=== PATIENT | female | born 1990 | race Caucasian/White ===

== ENCOUNTER 2025-02-20 14:30 | Emergency (ER) | payer OTHER, SELFPAY ==
--- NOTE | ~2025-02-20 | CT_ITS ---
EXAMINATION: CTA chest PE abdomen pel DATE: 02/20/2025 19:11 CDT INDICATION: TECHNIQUE: Computed tomographic angiography (CTA) of the chest was performed, along with multiple con tiguous axial images of the abdomen and pelvis with 100 mL Omnipaque-350 intravenous contrast. The do se-length product was 1805.71 mGy-cm. Maximum intensity projection 3D-reconstructions of the aorta an d other arteries were constructed by the technologist on a separate workstation. FINDINGS/OBSERVATIONS: PULMONARY ARTERIES: No filling defect is identified within the main or proximal pulmonary artery. The main pulmonary artery is not enlarged. THORACIC AORTA: No aneurysmal dilatation or dissection is present. The great vessels are intact LUNGS: MEDIASTINUM: No morphologically suspicious or pathologically enlarged lymph nodes are identified with in the mediastinum or bilateral axilla. BONES OF THE CHEST: No acute fracture. No significant degenerative disease. No lytic or blastic lesions. HEART: The heart is of normal size, without pericardial effusion. LIVER: The liver enhances homogeneously and is enlarged measuring 22 cm in longitudinal dimension. GALLBLADDER AND BILIARY SYSTEM: The gallbladder is distended, and demonstrates mural thickening and surrounding free fluid. No discrete calcified stones are identified. PANCREAS: The pancreas enhances homogeneously without ductal dilatation. SPLEEN: The spleen enhances homogeneously and is not enlarged. KIDNEYS: The bilateral kidneys enhance symmetrically without hydronephrosis or renal calculi. ADRENAL GLANDS: Unremarkable. GASTROINTESTINAL TRACT: Fluid distention of the stomach without surrounding inflammatory change. Colonic diverticulosis without surrounding inflammatory change. APPENDIX: The air-filled appendix is of normal caliber (coronal series, images 35 through 47) VASCULATURE: Unremarkable. No aneurysmal dilatation or significant stenosis. LYMPH NODES: No pathologically enlarged or morphologically suspicious lymph nodes within the retroperitoneum or at the root of the mesentery. PELVIC STRUCTURES: The bladder is only minimally distended, and otherwise unremarkable. The uterus is anteverted and anteflexed, and otherwise unremarkable. The bilateral ovaries are unremarkable in size for a patient of this age. BODY WALL AND MUSCULOSKELETAL: Small fat-containing umbilical hernia. No significant degenerative disease within the lower thoracic or lumbosacral spine. IMPRESSION: No pulmonary embolus. No aneurysmal dilatation of the aorta. No aortic dissection. Mural thickening of the distended gallbladder with pericholecystic fluid, as detailed above. Hepatomegaly Reviewed, dictated and finalized at location A. IMPRESSION: No pulmonary embolus. No aneurysmal dilatation of the aorta. No aortic dissection. Mural thickening of the distended gallbladder with pericholecystic fluid, as de tailed above. Hepatomegaly
[2025-02-20 14:42] VITALS: BP 129/70; PULSE 84; RESP 18; TEMP 36.6; O2SAT 100
--- NOTE | 2025-02-20 15:52 | ECG_ITS ---
Test Date: 2025-02-20 16:18:11 Measurements Intervals Purvis Rate: 81 P: 30 VT: 161 QRS: 20 QRSD: 82 T: 31 QT: 356 QTc: 415 Interpretive Statements SINUS RHYTHM LOW QRS VOLTAGE IN PRECORDIAL LEADS Electronically Signed On 02-21-2025 17:11:09 CDT by Rober Lawson D.O
--- NOTE | 2025-02-20 15:54 | ED_ITS ---
HPI - SOB/Dyspnea General Chief Complaint: Shortness of Breath/Dyspnea <Henny Wong APRN - Last Filed: 02/20/25 15:57> Stated Complaint: sob, hx of PEs <Henny Wong APRN - Last Filed: 02/20/25 15:57> Time Seen by Provider: 02/20/25 15:40 <Henny Wong APRN - Last Filed: 02/20/25 15:57> Focused HPI: Patient is a 35-year-old female who presents to the ER with sudden onset R flank/abdominal pain, along with shortness of breath. She reports the pain started approximately 5 hours ago when she was driving. 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 Her youngest child is 8-month-old. Patient denies any other relevant medical history. She reports she has never pain like this before. Patient denies any recent fevers, urinary symptoms, or wheezing. GENERAL: Ill l-appearing, well-nourished, and in acute distress. HEAD: Normocephalic, atraumatic. CHEST: Clear to auscultation. ?No respiratory distress. HEART: Regular rate and rhythm.? NEURO: ?Alert and oriented x3. Tearful Patient screened in triage and initial orders placed.? ?Additional care and disposition to be based upon?diagnostic testing and treatment. <Henny Wong APRN - Last Filed: 02/20/25 15:57> History of Present Illness HPI Narrative: per EMR <Ann Mon MD - Last Filed: 02/20/25 23:59> Related Data Allergies/Adverse Reactions: Allergies Allergy/AdvReac Type Severity Reaction Status Date / Time No Known Allergies Allergy Verified 02/20/25 18:30 <Henny Wong APRN - Last Filed: 02/20/25 15:57> Review of Systems 2 Review of Systems: All systems reviewed & are unremarkable except as noted in HPI and below <Ann Mon MD - Last Filed: 02/20/25 23:59> Exam 2 Narrative: EXAMINATION OF ORGAN SYSTEMS/BODY AREAS: Constitutional: Vital signs per nursing GENERAL: Is extremely anxious HEAD: Normal with no signs of head trauma. EYES: EOMI, conjunctiva normal ENT: Hearing grossly intact LUNGS: Nonlabored breathing. HEART: [Regular rate and rhythm] ABD: [Soft], negative Richardson sign, no significant tenderness to palpation right upper quadrant EXT: Normal range of motion SKIN: [No rashes or lesions.] NEURO: [Alert and oriented x 3. No gross focal sensory or strength deficits.] PSYCH: Anxious affect <Ann Mon MD - Last Filed: 02/20/25 23:59> Course Vital Signs Vital signs: Vital Signs Temperature 97.9 F 02/20/25 14:42 Pulse Rate 84 02/20/25 14:42 Respiratory Rate 18 02/20/25 14:42 Blood Pressure 129/70 02/20/25 14:42 Pulse Oximetry 100 02/20/25 14:42 Oxygen Delivery Room Air 02/20/25 14:42 Temperature 97.6 F 02/20/25 17:35 Pulse Rate 99 02/20/25 21:10 Respiratory Rate 18 02/20/25 21:10 Blood Pressure 117/65 02/20/25 21:10 Pulse Oximetry 99 02/20/25 21:10 Oxygen Delivery Room Air 02/20/25 18:28 <Henny Wong APRN - Last Filed: 02/20/25 15:57> Vital Signs Temperature 97.9 F 02/20/25 14:42 Pulse Rate 84 02/20/25 14:42 Respiratory Rate 18 02/20/25 14:42 Blood Pressure 129/70 02/20/25 14:42 Pulse Oximetry 100 02/20/25 14:42 Oxygen Delivery Room Air 02/20/25 14:42 Temperature 97.6 F 02/20/25 17:35 Pulse Rate 99 02/20/25 21:10 Respiratory Rate 18 02/20/25 21:10 Blood Pressure 117/65 02/20/25 21:10 Pulse Oximetry 99 02/20/25 21:10 Oxygen Delivery Room Air 02/20/25 18:28 <Ann Mon MD - Last Filed: 02/20/25 23:59> MDM - SOB/Dyspnea MDM Narrative Medical decision making narrative: Patient presents here with right flank pain, concern for possible PE, on exam she is tearful, abdomen soft with some very minimal tenderness to the right upper quadrant with deep palpation but otherwise negative Richardson sign, normal vitals and no fevers. D-dimer is negative, CTA was obtained which is negative for PE, does show signs of cholecystitis. She has very minimally elevated LFTs, but no elevated bilirubin, very minimally elevated WBC. She does not live here and needs to get home to [place], she is driving there with her 2 young children where she will be meeting with family. I did discuss this with the surgeon, given how well she appears here, do feel she can be managed outpatient, with close follow-up in the clinic. Discussed with the patient was agreeable to the plan, with strict return precautions if she starts having any signs of cholecystitis she is to go to the nearest emergency room. She is started on antibiotics with IV dose given here. At time of discharge she is well-appearing, in no distress, normal vitals. <Ann Mon MD - Last Filed: 02/20/25 23:59> Lab Data Result diagrams: 02/20/25 16:29 02/20/25 16:29 <Henny Wong APRN - Last Filed: 02/20/25 15:57> Labs: Lab Results 02/20/25 02/20/25 02/20/25 Range/Units 16:29 16:34 18:22 WBC 11.5 H (4.5-10.0) K/mm3 RBC 5.02 (4.2-5.4) M/mm3 Hgb 14.7 (12.0-15.0) g/dL Hct 43.4 (37.0-47.0) % MCV 86.5 (80-100) fl MCH 29.3 (26-34) pg MCHC 33.9 (32-36) g/dl RDW 13.1 (11.5-14.5) % Plt Count 275 (150-375) k/mm3 MPV 11.2 H (7.4-10.4) fl Immature Gran % (Auto) 0.3 (0-0.5) % Neut % (Auto) 62.9 (45.5-73.1) % Lymph % (Auto) 29.9 (18.3-44.2) % [place] % (Auto) 5.7 (2.6-8.5) % Eos % (Auto) 0.8 (0-4.4) % Baso % (Auto) 0.4 (0.2-1.2) % Lymph # (Auto) 3.43 H (0.9-3.2) K/mm3 [place] # (Auto) 0.7 H (0.1-0.6) K/mm3 Eos # (Auto) 0.1 (0-0.3) K/mm3 Baso # (Auto) 0.1 (0.0-0.1) K/mm3 Abs Immat Gran (auto) 0.04 H (0.00-0.031) K/mm3 Absolute Neuts (auto) 7.2 H (1.3-6.7) K/mm3 Absolute Nucleated RBC 0.000 (0.0-0.012) K/mm3 Nucleated RBC % 0.0 (0.0-0.2) % PT 12.3 (11.1-14.7) Seconds INR 0.9 APTT 27.1 (22.3-36.8) Seconds D-Dimer 0.38 (<0.48) ug/mL Sodium 141 (137-145) mmol/L Potassium 3.9 (3.4-5.0) mmol/L Chloride 105 (98-107) mmol/L Carbon Dioxide 24 (22-30) mmol/L Anion Gap 12 (4-12) mmol/L BUN 13 (7-17) mg/dL Creatinine 0.94 (0.7-1.0) mg/dL Estim Creat Clear Calc 79 ml/min Estimated GFR > 60 (59 - ) Glucose 91 (65-110) mg/dL POC Capillary Glucose 130 H (65-105) mg/dl Lactic Acid 1.7 (0.7-2.0) mmol/L Calcium 9.5 (8.4-10.2) mg/dL Magnesium 2.0 (1.6-2.3) mg/dL Total Bilirubin 0.8 (0.2-1.3) mg/dL AST 95 H (14-36) U/L ALT 47 H (6-35) U/L Alkaline Phosphatase 114 (38-126) U/L Troponin I < 0.012 (0.000-0.034) ng/mL Total Protein 8.4 H (6.3-8.2) g/dL Albumin 4.7 (3.5-5.1) g/dL Urine Color Yellow (Yellow) Urine Appearance Clear (Clear) Urine pH 7.0 (5.0-9.0) Ur Specific [place] 1.029 (1.001-1.035) Urine Protein 1+ H (Negative) mg/dL Urine Glucose (UA) Negative (Negative) mg/dL Urine Ketones Trace H (Negative) mg/dL Ur Blood (Man) 2+ H (Negative) Urine Nitrate Negative (Negative) Urine Bilirubin Negative (Negative) Urine Urobilinogen 1.0 (<2.0) mg/dL Leukocyte Esterase Rfl 1+ H (Negative) TRES/UL Urine RBC 0-2 (0-2) /hpf Urine WBC 11-20 H (0-3) /hpf Ur Squamous Epith Cells Few (Few) /hpf Urine Bacteria 1+ H /hpf Urine Casts 0-2 Urine Test Negative <Henny Wong, FILM AND VIDEO GRAPHICS DESIGNER - Last Filed: 02/20/25 15:57> Lab Results 02/20/25 02/20/25 02/20/25 Range/Units 16:29 16:34 18:22 WBC 11.5 H (4.5-10.0) K/mm3 RBC 5.02 (4.2-5.4) M/mm3 Hgb 14.7 (12.0-15.0) g/dL Hct 43.4 (37.0-47.0) % MCV 86.5 (80-100) fl MCH 29.3 (26-34) pg MCHC 33.9 (32-36) g/dl RDW 13.1 (11.5-14.5) % Plt Count 275 (150-375) k/mm3 MPV 11.2 H (7.4-10.4) fl Immature Gran % (Auto) 0.3 (0-0.5) % Neut % (Auto) 62.9 (45.5-73.1) % Lymph % (Auto) 29.9 (18.3-44.2) % [place] % (Auto) 5.7 (2.6-8.5) % Eos % (Auto) 0.8 (0-4.4) % Baso % (Auto) 0.4 (0.2-1.2) % Lymph # (Auto) 3.43 H (0.9-3.2) K/mm3 [place] # (Auto) 0.7 H (0.1-0.6) K/mm3 Eos # (Auto) 0.1 (0-0.3) K/mm3 Baso # (Auto) 0.1 (0.0-0.1) K/mm3 Abs Immat Gran (auto) 0.04 H (0.00-0.031) K/mm3 Absolute Neuts (auto) 7.2 H (1.3-6.7) K/mm3 Absolute Nucleated RBC 0.000 (0.0-0.012) K/mm3 Nucleated RBC % 0.0 (0.0-0.2) % PT 12.3 (11.1-14.7) Seconds INR 0.9 APTT 27.1 (22.3-36.8) Seconds D-Dimer 0.38 (<0.48) ug/mL Sodium 141 (137-145) mmol/L Potassium 3.9 (3.4-5.0) mmol/L Chloride 105 (98-107) mmol/L Carbon Dioxide 24 (22-30) mmol/L Anion Gap 12 (4-12) mmol/L BUN 13 (7-17) mg/dL Creatinine 0.94 (0.7-1.0) mg/dL Estim Creat Clear Calc 79 ml/min Estimated GFR > 60 (59 - ) Glucose 91 (65-110) mg/dL POC Capillary Glucose 130 H (65-105) mg/dl Lactic Acid 1.7 (0.7-2.0) mmol/L Calcium 9.5 (8.4-10.2) mg/dL Magnesium 2.0 (1.6-2.3) mg/dL Total Bilirubin 0.8 (0.2-1.3) mg/dL AST 95 H (14-36) U/L ALT 47 H (6-35) U/L Alkaline Phosphatase 114 (38-126) U/L Troponin I < 0.012 (0.000-0.034) ng/mL Total Protein 8.4 H (6.3-8.2) g/dL Albumin 4.7 (3.5-5.1) g/dL Urine Color Yellow (Yellow) Urine Appearance Clear (Clear) Urine pH 7.0 (5.0-9.0) Ur Specific [place] 1.029 (1.001-1.035) Urine Protein 1+ H (Negative) mg/dL Urine Glucose (UA) Negative (Negative) mg/dL Urine Ketones Trace H (Negative) mg/dL Ur Blood (Man) 2+ H (Negative) Urine Nitrate Negative (Negative) Urine Bilirubin Negative (Negative) Urine Urobilinogen 1.0 (<2.0) mg/dL Leukocyte Esterase Rfl 1+ H (Negative) TRES/UL Urine RBC 0-2 (0-2) /hpf Urine WBC 11-20 H (0-3) /hpf Ur Squamous Epith Cells Few (Few) /hpf Urine Bacteria 1+ H /hpf Urine Casts 0-2 Urine Test Negative <Ann Mon MD - Last Filed: 02/20/25 23:59> Discharge Plan Discharge Clinical Impression: UTI (urinary tract infection), Cholecystitis <Henny Wong APRN - Last Filed: 02/20/25 15:57> Patient Disposition: Home <Henny Wong APRN - Last Filed: 02/20/25 15:57> Condition: Stable <Henny Wong APRN - Last Filed: 02/20/25 15:57> Instructions: Antibiotic Form, Cholecystitis (ED) <Henny Wong APRN - Last Filed: 02/20/25 15:57> Additional Instructions: Please take the antibiotics as prescribed, and when you get back to [place] tomorrow, follow-up with the general surgeon of your choice in the next 1-2 days. If you start having any pain again, nausea vomiting, fevers or chills or anything else concerning, go to the nearest emergency room. <Henny Wong APRN - Last Filed: 02/20/25 15:57> Patient Language: Monegasque <Henny Wong APRN - Last Filed: 02/20/25 15:57> Prescriptions: New ciprofloxacin HCl [Cipro] 500 mg tablet 500 mg PO Q12H Qty: 14 0RF metronidazole 500 mg tablet 500 mg PO Q8H 7 Days Qty: 21 0RF <Henny Wong APRN - Last Filed: 02/20/25 15:57> Follow-up/Referrals: PHYSICIAN NOT ON STAFF,NONSTAFF [Primary Care Provider] - <Henny Wong, FILM AND VIDEO GRAPHICS DESIGNER - Last Filed: 02/20/25 15:57>
--- NOTE | 2025-02-20 16:06 | PC.NURSE ---
Prior to pt checking in, pt stated her 2 young kids were in her car that was parked in the ER [address]. Pt was checked in, and this RN and ED security went out to get the pts children. Pt and pts children placed in family services room for privacy. ED security then parked pts car for pt. Pt then MSE'ed by STEVE Inman and pt stated she needed to go back out to her car. EDKory Inman, BRIELLE Rao and services techcori Fuller were monitoring pts children while pt ambulated out to her car without distress. AMINA Fuller assisted mother by feeding her younger child while mother rested. Pt has asked multiple times for a wait time and has been educated that we cannot give out wait times. Pt stated, I should have called an ambulance so I would have gone straight back to a room. Pt was educated that it does not matter how you arrive to the ER, everyone is triaged the same. Pt has had AMINA Fuller to sit with her younger child while she took the older child to the bathroom.
--- NOTE | 2025-02-20 16:37 | PC.NURSE ---
Pt ambulated to ED waiting room bathroom and back, no distress noted.
[2025-02-20 16:42] LABS: Hematocrit 43.4 % (37.0-47.0); Hemoglobin 14.7 g/dL (12.0-15.0); Immature Granulocyte Percent A 0.3 % (0-0.5); Lymphocytes Absolute Auto 3.43 K/mm3 (0.9-3.2); Mean Corpuscular HGB Conc 33.9 g/dl (32-36); Mean Corpuscular Hemoglobin 29.3 pg (26-34); Mean Corpuscular Volume 86.5 fl (80-100); Nucleated Red Blood Cells Absolute Auto 0.000 K/mm3 (0.0-0.012); Nucleated Red Blood Cells Perc 0.0 % (0.0-0.2); Platelet Count Result 275 k/mm3 (150-375); Red Blood Count 5.02 M/mm3 (4.2-5.4); White Blood Count 11.5 K/mm3 (4.5-10.0)
[2025-02-20 16:47] LABS: Add Urine Microscopic? YES; Appearance Urine Clear (Clear); Glucose Urine UA Negative (Negative); Leukocyte Esterase Ur 1+ LEU/UL (Negative); Nitrate Urine Negative (Negative); Non Pathogenic Casts 0-2; Specific Grav Ur 1.029 (1.001-1.035)
[2025-02-20 17:07] LABS: Alanine Aminotransferase 47 U/L (6-35); Albumin Level 4.7 g/dL (3.5-5.1); Alkaline Phosphatase 114 U/L (38-126); Anion Gap 12 mmol/L (4-12); Aspartate Amino Transferase 95 U/L (14-36); Bilirubin,Total 0.8 mg/dL (0.2-1.3); Blood Urea Nitrogen 13 mg/dL (7-17); Calcium 9.5 mg/dL (8.4-10.2); Carbon Dioxide 24 mmol/L (22-30); Chloride 105 mmol/L (98-107); Estimated CRCL calculation 79 ml/min; Estimated Glomerular Filt Rate > 60; Glucose 91 mg/dL (65-110); Magnesium 2.0 mg/dL (1.6-2.3); Potassium 3.9 mmol/L (3.4-5.0); Sodium 141 mmol/L (137-145); Total Protein 8.4 g/dL (6.3-8.2)
[2025-02-20 17:12] LABS: INR 0.9; Prothrombin Time 12.3 Seconds (11.1-14.7)
[2025-02-20 17:13] LABS: Partial Thromboplastin Time 27.1 Seconds (22.3-36.8)
[2025-02-20 17:19] LABS: Troponin I < 0.012 ng/mL (0.000-0.034)
--- NOTE | 2025-02-20 17:30 | PC.NURSE ---
Pt ambulated to ER waiting room bathroom and back, no distress noted. Pt then ambulated to intake desk and stated it was getting harder to breathe and requested wait time. Pt was educated on we do not give out wait times and was told we would recheck her vital signs.
[2025-02-20 17:35] VITALS: BP 119/86; PULSE 80; RESP 20; TEMP 36.4; O2SAT 100
--- NOTE | 2025-02-20 17:40 | PC.NURSE ---
1735 pt states she needs something for pain, EDP Henny aware, no new orders at this time.
[2025-02-20 18:28] VITALS: BP 126/79; PULSE 82; PULSE 86; RESP 17; O2SAT 98
[2025-02-20 18:34] LABS: Pregnancy On Board Control Positive
--- OUTSIDE RECORDS SUMMARY | 2025-02-20 19:18 | XMS_ITS | Continuity of Care Document ---
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 It does not include entries that were removed or entered in error. Problem Status Onset Date Problem Type Date of Resolution Comments Source Immunization due Active 08/24/2024 [facility] Encounter for immunization Active Diagnosis [address] Medications Combined list of outpatient medications from [facility] and [facility] facilities.Medications provided include 1) outpatient medications from the last 15 months, and 2) patient-reported medications. Medication Details Route Status Patient Instructions Prescription Expires Prescription Number Last Dispense Date Ordering Provider Order Date Order Qty Source ENOXAPARIN SODIUM (enoxaparin sodium), 40MG/0.4ML, SYRINGE, SUBCUT, ZYDUS PHARMACEU, .4 ml SYRINGE Cancele d [id number] : 2023 0 Pharmac y Data Transac tion Service Facilit y Immunizations Combined list of available immunizations from the Department [facility] and [facility] facilities. 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 Status Comments Source influenza virus vaccine, inactivated 2024 FELIX Arredondo dominga, right (delt oid) [id number] Seqirus, A Xuba complet ed influenza virus vaccine, inactivat ed 08/24/24 Given [facility] tetanus, diphtheria, acellular pertu is 2024 FELIX Simsul dominga, right (delt oid) [id number] GlaxoSmithKli ne complet ed tetanus, diphtheri a, acellular pertussis 08/24/24 Given [facility] influenza, injectable, quadrivalent- pf 2019 zMaryef t Arm [id number] 150 Seqirus complet ed influenza , injectabl e, quadrival ent-pf 10/18/19 Given Ambulat ory Pharmac y Influenza, injectable, quadrivalent, preservative free 1 2019 RANJEET TRIMBLE [id number] 150 Seqirus (SEQ) complet ed Influenza , injectabl e, quadrival ent, preservat brian free DoD influenza, injectable, quadrivalent- pf 2018 Aidan monroe Arm [id number] 150 Seqirus complet ed influenza , injectabl e, quadrival ent-pf 08/25/18 Given Ambulat ory Pharmac y Influenza, injectable, quadrivalent, preservative free 1 2018 HORACIO SEGOVIA [id number] 150 Seqirus (SEQ) complet ed Influenza , injectabl e, quadrival ent, preservat brian free [facility] Results Combined list of recent chemistry, hematology and other laboratory results from Department of Defense and [facility], ranging from 15 months to all on record, depending upon the facility. Order Name Results Value Reference Range Date Interpretation Specimen Comments Source Immunol ogy/Ser ology Hep A Ab Reactive *ABN* (08/25/24 12:13 PM) 08/[address] [place] [address] Immunol ogy/Ser ology Hep B Surface Ab Reactive *ABN* (08/25/24 12:13 PM) 08/[address] [place] [address] Immunol ogy/Ser ology Mumps Ab IgG LC 27.7 Aunit/mL Immune >10.9 08/25 Result Comment: Negative <9.0 Equivocal 9.0 - 10.9 Positive >10.9 A positive result generally indicates past exposure to Mumps virus or previous vaccination. [address] [place] [address] Immunol ogy/Ser ology Rubeola Ab IgG LC 213.0 Aunit/mL Immune >16.4 08/25 Result Comment: Negative <13.5 Equivocal 13.5 - 16.4 Positive >16.4 Presence of antibodies to Rubeola is presumptive evidence of immunity except when acute infection is suspected. [address] [place] [address] Immunol ogy/Ser ology Rubella Abs IgG LC 1.95 index Immune >0.99 08/25 Result Comment: Non-immune <0.90 Equivocal 0.90 - 0.99 [facility] >[facility] Immunol ogy/Ser ology VZV IgG LC Reactive Non Reactive 08/25 Result Comment: Please note reference interval change A Reactive result is considered evidence of immunity to VZV. Reactive indicates that VZV IgG was detected consistent with previous infection and/or vaccination. A Non Reactive result indicates that VZV IgG was not detected suggesting that immunity has not been acquired. Performed At: [address] [facility] [address] [id number] Arimda Mnotano MD Ph:[phone] [facility] Encounters Combined list of: 1) Encounters from Department of [facility] facilities going backup to the last 18 months, not all VA inpatient encounters are included; 2) Encounters from the Department of [facility] facilities going backup to 280 months. 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 JAVAN GUTIERREZ 01/13 [place]Art[place] OUTPATIENT [id number] annual pap HORACIO CAI 10/17 Released w/o Limitations [place](Ob/[place] [facility] [id number] Encoun er for immuniz ation,O ther underim munizat ion status KATI FOSS TO 08/24 Discharge Disposition: Home or Self Care [facility] Between Visit [id number] 08/24 Discharge Disposition: Home or Self Care [facility] [id number] KATI FOSS TO 08/25 Discharge Disposition: Home or Self Care [facility]osp[facility] l Procedures Combined list of: 1) Procedures from Department of Veterans Affairs facilities going back up to thelast 18 months, not all [place] non-surgical procedures are included; 2) All procedures from the Department of Defense facilities. Procedure Procedure Type Code Date Perfomer Comments Sourc e No data available for this section [facility] Pharmacy IMMUNIZATION ADMINISTRATION (INCLUDES PERCUTANEOUS, INTRADERMAL, SUBCUTANEOUS, OR INTRAMUSCULAR INJECTIONS); 1 VACCINE (SINGLE OR COMBINATION VACCINE/TOXOID) 10/18/19 [facility] THERAPEUTIC, PROPHYLACTIC, OR DIAGNOSTIC INJECTION (SPECIFY SUBSTANCE OR DRUG); SUBCUTANEOUS OR INTRAMUSCULAR 08/25/19 [facility] Screening papanicolaou smear; obtaining, preparing and conveyance of cervical or vaginal smear to laboratory 08/25/[address] Supervised Injection Intramuscular Supervised Injection Intramuscular [id number] 08/25/19 JAVAN GUTIERREZ Immunization Administration One Vaccine Immunization Administration One Vaccine 53917 08/25/19 JAVAN GUTIERREZ [facility] Immunization Administration One Vaccine Immunization Administration One Vaccine 43000 HORACIO CAI [facility] Social History Combined list of available smoking, tobacco, and other social history from Department of Defense and Veterans Affairs facilities. Social History Type Response Date Comment Sourc e Sex Representation Female (finding) 09/06/2021 Unknown Organization Sexual Orientation Ambula tory Pharmacy Gender identity Ambulator y Pharmacy This section is an empty social history section. DoD Assessment and Plan Combined list of future care activities from Department of Defense and Veterans Affairs facilities (e.g., assessment and plan notes, appointments, orders, and referrals). Additional future care activities may be listed in the Plan of Care section. Result Assessment and Plan Date Source Assessment and Plan Extracted from:Title : Ambulatory Patient Education Author: MONTEZ ALEJANDRO RN Date: 08/24/24 Infectious Disease Influenza (Flu) Vaccine (Inactivated or Recombinant): What You Need to Know Many vaccine information statements are available in Gabonese and other languages. See www.immunize.org/vis. 1. Why get vaccinated? Influenza vaccine can prevent influenza (flu). Flu is a contagious disease that spreads around the [place] every year, usually between April and November. Anyone can get the flu, but it is more dangerous for some people. Infants and young children, people 65 years and older, people, and people with certain health conditions or a weakened immune system are at greatest risk of flu complications. Pneumonia, bronchitis, sinus infections, and ear infections are examples of flu-related complications. If you have a medical condition, such as heart disease, cancer, or diabetes, flu can make it worse. Flu can cause fever and chills, sore throat, muscle aches, fatigue, cough, headache, and runny or stuffy nose. Some people may have vomiting and diarrhea, though this is more common in children than adults. In an average year, thousands of people in the [place] from flu, and many more are hospitalized. Flu vaccine prevents millions of illnesses and flu-related visits to the doctor each year. 2. Influenza vaccines CDC recommends everyone 6 months and older get vaccinated every flu season. Children 6 months through 8 years of age may need 2 doses during a single flu season. Everyone else needs only 1 dose each flu season. It takes about 2 weeks for protection to develop after vaccination. There are many flu viruses, and they are always changing. Each year a new flu vaccine is made to protect against the influenza viruses believed to be likely to cause disease in the upcoming flu season. Even when the vaccine doesn't exactly match these viruses, it may still provide some protection. Influenza vaccine does not cause flu. Influenza vaccine may be given at the same time as other vaccines. 3. Talk with your health care provider Tell your vaccination provider if the person getting the vaccine: Has had an allergic reaction after a previous dose of influenza vaccine, or has any severe, life-threatening allergies Has ever had Guillain B arr Syndrome (also called GBS) In some cases, your health care provider may decide to postpone influenza vaccination until a future visit. Influenza vaccine can be administered at any time during . People who are or will be during influenza season should receive inactivated influenza vaccine. People with minor illnesses, such as a cold, may be vaccinated. People who are moderately or severely ill should usually wait until they recover before getting influenza vaccine. Your health care provider can give you more information. 4. Risks of a vaccine reaction Soreness, redness, and swelling where the shot is given, fever, muscle aches, and headache can happen after influenza vaccination. There may be a very small increased risk of Guillain B arr Syndrome (GBS) after inactivated influenza vaccine (the flu shot). Young children who get the flu shot along with pneumococcal vaccine (PCV13) and/or DTaP vaccine at the same time might be slightly more likely to have a seizure caused by fever. Tell your health care provider if a child who is getting flu vaccine has ever had a seizure. People sometimes faint after medical procedures, including vaccination. Tell your provider if you feel dizzy or have vision changes or ringing in the ears. As with any medicine, there is a very remote chance of a vaccine causing a severe allergic reaction, other serious injury, or . 5. What if there is a serious problem? An allergic reaction could occur after the vaccinated person leaves the clinic. If you see signs of a severe allergic reaction (hives, swelling of the face and throat, difficulty breathing, a fast heartbeat, dizziness, or weakness), call 03-27- and get the person to the nearest hospital. For other signs that concern you, call your health care provider. Adverse reactions should be reported to the Vaccine Adverse Event Reporting System (VAERS). Your health care provider will usually file this report, or you can do it yourself. Visit the VAERS website at www.vaers.hhs.gov or call . VAERS is only for reporting reactions, and VAERS staff members do not give medical advice. 6. The National Vaccine Injury Compensation Program The National Vaccine Injury Compensation Program (VICP) is a federal program that was created to compensate people who may have been injured by certain vaccines. Claims regarding alleged injury or due to vaccination have a time limit for filing, which may be as short as two years. Visit the VICP website at www.[facility].gov/vaccinecompensatio n or call to learn about the program and about filing a claim. 7. How can I learn more? Ask your health care provider. Call your local or state health department. Visit the website of the Food and Drug Administration (FDA) for vaccine package inserts and additional information at www.fda.gov/protfavd-swynl-ktfx ogics/vaccines. Contact the Centers for Disease Control and Prevention (CDC): Call (4-850-KFX-INFO) or Visit CDC's website at www.cdc.gov/flu. Source: CDC Vaccine Information Statement Inactivated Influenza Vaccine (03/01/2021) This same material is available at www.cdc.gov for no charge. This information is not intended to replace advice given to you by your health care provider. Make sure you discuss any questions you have with your health care provider. Document Revised: 10/28/2023 Document Reviewed: 08/03/2023 Reactivity Patient Education 2023 [employer]. Tdap (Tetanus, Diphtheria, Pertussis) Vaccine: What You Need to Know Many vaccine information statements are available in [place]onese and other languages. See www.immunize.org/vis. 1. Why get vaccinated? Tdap vaccine can prevent tetanus, diphtheria, and pertussis. Diphtheria and pertussis spread from person to person. Tetanus enters the body through cuts or wounds. TETANUS (T) causes painful stiffening of the muscles. Tetanus can lead to serious health problems, including being unable to open the mouth, having trouble swallowing and breathing, or . DIPHTHERIA (D) can lead to difficulty breathing, heart failure, paralysis, or . PERTUSSIS (aP), also known as whooping cough, can cause uncontrollable, violent coughing that makes it hard to breathe, eat, or drink. Pertussis can be extremely serious especially in babies and young children, causing pneumonia, convulsions, brain damage, or . In teens and adults, it can cause weight loss, loss of bladder control, passing out, and rib fractures from severe coughing. 2. Tdap vaccine Tdap is only for children 7 years and older, adolescents, and adults. Adolescents should receive a single dose of Tdap, preferably at age 11 or 12 years. people should get a dose of Tdap during every , preferably during the early part of the third trimester, to help protect the from pertussis. Infants are most at risk for severe, life-threatening complications from pertussis. Adults who have never received Tdap should get a dose of Tdap. Also, adults should receive a booster dose of either Tdap or Td (a different vaccine that protects against tetanus and diphtheria but not pertussis) every 10 years, or after 5 years in the case of a severe or dirty wound or burn. Tdap may be given at the same time as other vaccines. 3. Talk with your health care provider Tell your vaccine provider if the person getting the vaccine: Has had an allergic reaction after a previous dose of any vaccine that protects against tetanus, diphtheria, or pertussis, or has any severe, life-threatening allergies Has had a coma, decreased level of consciousness, or prolonged seizures within 7 days after a previous dose of any pertussis vaccine (DTP, DTaP, or Tdap) Has seizures or another nervous system problem Has ever had Guillain-Almanzar Syndrome (also called GBS) Has had severe pain or swelling after a previous dose of any vaccine that protects against tetanus or diphtheria In some cases, your health care provider may decide to postpone Tdap vaccination until a future visit. People with minor illnesses, such as a cold, may be vaccinated. People who are moderately or severely ill should usually wait until they recover before getting Tdap vaccine. Your health care provider can give you more information. 4. Risks of a vaccine reaction Pain, redness, or swelling where the shot was given, mild fever, headache, feeling tired, and nausea, vomiting, diarrhea, or stomachache sometimes happen after Tdap vaccination. People sometimes faint after medical procedures, including vaccination. Tell your provider if you feel dizzy or have vision changes or ringing in the ears. As with any medicine, there is a very remote chance of a vaccine causing a severe allergic reaction, other serious injury, or . 5. What if there is a serious problem? An allergic reaction could occur after the vaccinated person leaves the clinic. If you see signs of a severe allergic reaction (hives, swelling of the face and throat, difficulty breathing, a fast heartbeat, dizziness, or weakness), call 03-27- and get the person to the nearest hospital. For other signs that concern you, call your health care provider. Adverse reactions should be reported to the Vaccine Adverse Event Reporting System (VAERS). Your health care provider will usually file this report, or you can do it yourself. Visit the VAERS website at www.vaers.[facility].gov or call . VAERS is only for reporting reactions, and VAERS staff members do not give medical advice. 6. The National Vaccine Injury Compensation Program The National Vaccine Injury Compensation Program (VICP) is a federal program that was created to compensate people who may have been injured by certain vaccines. Claims regarding alleged injury or due to vaccination have a time limit for filing, which may be as short as two years. Visit the VICP website at www.[facility].gov/vaccinecompensatio n or call to learn about the program and about filing a claim. 7. How can I learn more? Ask your health care provider. Call your local or state health department. Visit the website of the Food and Drug Administration (FDA) for vaccine package inserts and additional information at www.fda.gov/iizfyeyt-hkzxa-ieep ogics/vaccines. Contact the Centers for Disease Control and Prevention (CDC): Call (6-482-PIJ-INFO) or Visit CDC's website at www.cdc.gov/vaccines. Source: CDC Vaccine Information Statement Tdap (Tetanus, Diphtheria, Pertussis) Vaccine (03/01/2021) This same material is available at www.cdc.gov for no charge. This information is not intended to replace advice given to you by your health care provider. Make sure you discuss any questions you have with your health care provider. Document Revised: 10/28/2023 Document Reviewed: 08/28/2023 [employer]activity Patient Education 2023 [employer] 02/21/[address] Functional Status Combined list of recent functional and cognitive assessments recorded at Department of Defense and Veterans Affairs (VA).VA Functional Bennett Measurement (FIM) Scale: 1 = Total Assistance (Subject = 0% +), 2 = Maximal Assistance (Subject = 25% +), 3 = Moderate Assistance (Subject = 50% +), 4 = Minimal Assistance (Subject = 75% +), 5 = Supervision, 6 = Modified Bennett (Device), 7 = Complete Bennett (Timely, Safely). Assessment Date/Time Source Assessment Type Assessment Skill Assessment Score Assessment Details No data available for this section
--- OUTSIDE RECORDS SUMMARY | 2025-02-20 19:18 | XMS_ITS | Clinical Summary ---
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 Role Phone Hoang Kebede MD Primary Care Provider [phone] Shona Cuevas APRN Unavailable [phone] Social History Tobacco Use Types Packs/Day Years Used Date Smoking Tobacco: Never Assessed Comments Unknown Sex and Gender Information Value Date Recorded Sex Assigned at Not on file Legal Sex Female 2:03 PM CDT Gender Identity Not on file Sexual Orientation Not on file Plan of Treatment Health Maintenance Due Date Last Done Comments HIV Screening 1990 Varicella Vaccines (1 of 2 - 13+ 2-dose series) 2003 Hepatitis C Screening 01/08/2008 MMR Vaccines-Adult 2009 Cervical Cancer Screening 2011 COVID-19 Vaccine (2023-2 5 season) 2024 Influenza Vaccine (#1) 2025 DTaP,Tdap,and Td Vaccines (2 - Td or Tdap) 08/07/2031 08/07/2021 HIB Vaccines Aged Out No longer eligi ble based on patient's age to complete this topic IPV Vaccines Aged Out No longer eligi ble based on patient's age to complete this topic Meningococcal B Vaccine Aged Out No l onger eligible based on patient's age to complete this topic Meningococcal Vaccine Aged Out No zoie talon eligible based on patient's age to complete this topic Pneumo-Vaccine: At Risk 6-49 Yrs Aged Out No longer eligible based on patient's age to complete this topic Rotavirus Vaccines Aged Out No longer eligible based on patient's age to complete this topic Insurance [facility] Care Teams 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
--- OUTSIDE RECORDS SUMMARY | 2025-02-20 19:18 | XMS_ITS | Data Portability ---
Author Organization [place] - [facility] Family & or Medicine, [facility] Tele[facility] [address] [place] [address] Assessment No assessment recorded. Plan of Treatment Reminders Order Date Submit Date Provider Last Modified By Organization Details Last Modified Time Details Appointments None record ed. Lab None record ed. Referral None record ed. Procedures None record ed. Surgeries None record ed. Imaging None record ed. Medication Orders None record ed. Patient TargetsNo targets recorded. Patient Instructions Encounter Date Encounter Id Patient Instructions Last Modified By Organization Details Last Modified Time 12/04/2017 [id number] labs to be done tom, will call with results [email or web address] Not available 12/04/2017 11:49:15 Reason for Referral None Reported. Results Created Date Observation Date Name Description Value Unit Range Abnormal Flag Note LastModifiedBy Organization Detail LastModifiedTime 12/09/19 18 12/09/2017 micro album in/cr eatin ine, mass ratio , urine creatinine, random urine 257 mg/dL 20-320 normal Not Available [facility] [address] [place], [address], 12/09/2017 14:11:50 12/09/19 18 12/09/2017 micro album in/cr eatin ine, mass ratio , urine microalbumin 0.5 mg/dL see note: normal Refer ence Range : Refer ence Range Not estab lishe d Not Available [facility] [address] [place], [address], 12/09/2017 14:11:50 12/09/19 18 12/09/2017 micro album in/cr eatin ine, mass ratio , urine microalbumin /creatinine ratio, random urine 2 mcg/m g_cre at <30 normal The ADA defin es abnor malit ies in album in excre tion as follo ws: Categ ory Resul t (mcg/ mg creat inine ) Lisa l <30 Micro album inuri a 30-29 9 Clini brain album inuri a > OR = 300 The ADA recom mends that at least two of three speci mens colle cted withi n a 3-6 month perio d be abnor mal befor e consi miriam g a patie nt to be withi n a diagn ostic categ ory. Not Available [facility] [address] [place] [address], [place], [address], 12/09/2017 14:11:50 12/09/19 18 12/09/2017 lipid panel , serum cholesterol, total 119 mg/dL <200 normal Not Available [facility] [address] [place] [address], [place], [address], 12/09/2017 06:58:21 12/09/19 18 12/09/2017 lipid panel , serum HDL cholesterol 40 mg/dL >50 low Not Available [facility] [address] [place] [address], [place], [address], 12/09/2017 06:58:21 12/09/19 18 12/09/2017 lipid panel , serum triglyceride s 126 mg/dL <150 normal Not Available [facility] [address] [place] [address], [place], [address], 12/09/2017 06:58:21 12/09/19 18 12/09/2017 lipid panel , serum LDL-choleste rol 58 mg/dL _(brian c) normal Refer ence range : <100 Ayad able range <100 mg/dL for prima ry preve ntion ; <70 mg/dL for patie nts with CHD or diabe tic patie nts with > or = 2 CHD risk facto rs. LDL-C is now calcu lated using the Haylee n-Hop kins calcu torsten n, which is a valid ated novel metho d provi teddy mahoney r accur acy than the Fried destiny equat ion in the estim ation of LDL-C . Haylee rduolph SS et al. DEEPTI. 2013; 310(2 1): 2061- 2068 (http ://ed ferati on.Lawanda ibarraExplara. [employer]/f aq/FA Q164) Not Available [address], [place], [address], 12/09/2017 06:58:21 12/09/19 18 12/09/2017 lipid panel , serum chol/HDLC ratio 3.0 (calc ) <5.0 normal Not Available [address], [place], [address], 12/09/2017 06:58:21 12/09/19 18 12/09/2017 lipid panel , serum non HDL cholesterol 79 mg/dL _(brain c) <130 normal For patie nts with diabe axel plus 1 major ASCVD risk facto r, treat ing to a non-H DL-C goal of <100 mg/dL (LDL- C of <70 mg/dL ) is consi dered a thera peuti c optio n. Not Available [address] [place], [address], 12/09/2017 06:58:21 12/09/19 18 12/09/2017 CMP, serum or plasm a glucose 84 mg/dL 65-99 normal Fasti ng refer ence inter leslie Not Available [address], [address], 12/09/2017 06:58:22 12/09/19 18 12/09/2017 CMP, serum or plasm a urea nitrogen (BUN) 13 mg/dL 7-25 normal Not Available [facility] [address], [address], 12/09/2017 06:58:22 12/09/19 18 12/09/2017 CMP, serum or plasm a creatinine 1.00 mg/dL 0.50-1 .10 normal Not Available [address], [address], 12/09/2017 06:58:22 12/09/19 18 12/09/2017 CMP, serum or plasm a eGFR non-afr. dutch 77 mL/mi n/1.7 3m2 > or = 60 normal Not Available [facility] [address] [place], [address], 12/09/2017 06:58:22 12/09/19 18 12/09/2017 CMP, serum or plasm a eGFR 89 mL/mi n/1.7 3m2 > or = 60 normal Not Available [facility] [address] [place], [address], 12/09/2017 06:58:22 12/09/19 18 12/09/2017 CMP, serum or plasm a BUN/creatini ne ratio NOT APPLIC ABLE (calc ) 6-22 Not Available [address] [place], [address], 12/09/2017 06:58:22 12/09/19 18 12/09/2017 CMP, serum or plasm a sodium 141 mmol/ L 135-14 6 normal Not Available [address] [place], [address], 12/09/2017 06:58:22 12/09/19 18 12/09/2017 CMP, serum or plasm a potassium 4.1 mmol/ L 3.5-5. 3 normal Not Available [facility] [address] [place] [place], [address], 12/09/2017 06:58:22 12/09/19 18 12/09/2017 CMP, serum or plasm a chloride 109 mmol/ L 98-110 normal Not Available [facility] [address] [place], [address], 12/09/2017 06:58:22 12/09/19 18 12/09/2017 CMP, serum or plasm a carbon dioxide 21 mmol/ L 20-31 normal Not Available [facility] [address] [place], [address], 12/09/2017 06:58:22 12/09/19 18 12/09/2017 CMP, serum or plasm a calcium 9.1 mg/dL 8.6-10 .2 normal Not Available [facility] [address] [place], [address], 12/09/2017 06:58:22 12/09/19 18 12/09/2017 CMP, serum or plasm a protein, total 6.5 g/dL 6.1-8. 1 normal Not Available [facility] [address] [place], [address], 12/09/2017 06:58:22 12/09/19 18 12/09/2017 CMP, serum or plasm a albumin 4.0 g/dL 3.6-5. 1 normal Not Available [address] [place], [address], 12/09/2017 06:58:22 12/09/19 18 12/09/2017 CMP, serum or plasm a globulin 2.5 g/dL_ (calc ) 1.9-3. 7 normal Not Available [address] [place], [address], 12/09/2017 06:58:22 12/09/19 18 12/09/2017 CMP, serum or plasm a albumin/glob ulin ratio 1.6 (calc ) 1.0-2. 5 normal Not Available [facility] [address] [place], [address], 12/09/2017 06:58:22 12/09/19 18 12/09/2017 CMP, serum or plasm a bilirubin, total 0.4 mg/dL 0.2-1. 2 normal Not Available [facility] [address] [place], [address], 12/09/2017 06:58:22 12/09/19 18 12/09/2017 CMP, serum or plasm a alkaline phosphatase 112 U/L 33-115 normal Not Available [facility] [address] [facility], [place], [address], 12/09/2017 06:58:22 12/09/19 18 12/09/2017 CMP, serum or plasm a AST 18 U/L 10-30 normal Not Available [facility] [address] [place] [address], [place], [address], 12/09/2017 06:58:22 12/09/19 18 12/09/2017 CMP, serum or plasm a ALT 18 U/L 6-29 normal Not Available [facility] [address] [facility], [place], [address], 12/09/2017 06:58:22 12/09/19 18 12/09/2017 HbA1c (hemo globi n A1c), blood hemoglobin A1C 4.9 %_of_ total _HGB <5.7 normal For the purpo se of lashell castanong for the prese nce of diabe axel: <5.7% Consi stent with the absen ce of diabe axel 5.7-6 .4% Consi stent with incre ased risk for diabe axel (pred iabet es) > or =6.5% Consi stent with diabe axel This assay resul t is consi stent with a decre ased risk of diabe axel. Curre ntly, no conse nsus exist katey espinal use of hemog lobin A1c for diagn osis of diabe axel in child madelyn. Accor ding to Ameri can Diabe axel Assoc iatio n (ADA) guide lines , hemog lobin A1c <7.0% repre sents optim al contr ol in non-p regna nt diabe tic patie nts. Diffe rent metri cs may apply to speci fic patie nt popul ation s. Stand ards of Medic al Care in Diabe axel(A DA). Not Available [facility] [address] [facility], [place], [address], 12/09/2017 04:28:20 12/09/19 18 12/09/2017 vitam in D, 25-hy droxy , total , serum vitamin D,25-oh,tota l,ia 44 NG/mL 30-100 normal Vitam in D Statu s 25-OH Vitam in D: Defic iency : <20 ng/mL Insuf ficie ncy: 20 - 29 ng/mL Optim al: > or = 30 ng/mL For 25-OH Vitam in D testi ng on patie nts on D2-woo pplem entat ion and patie nts for whom quant itati on of D2 and D3 fract ions is requi red, the [facility] Ass[facility] eD(TM ) 25-OH VIT D, (D2,D 3), LC/MS /MS is recom priya d: order code 18486 (lokesh ents >2yrs ). For more infor diego rudolph on this test, go to: http: //[facility] hattie patel stdia gnost ics.c om/fa q/FAQ 163 (This link is being provi ded for infor diego nal/e ducat ional purpo ses only. ) Not Available [facility] [address] [place], [address], 12/09/2017 08:47:33 12/09/19 18 12/09/2017 TSH, serum or plasm a TSH w/reflex to FT4 3.54 mIU/L normal Refer ence Range > or = 20 Years 0.40- 4.50 Pregn salvador Range s First trime ster 0.26- 2.66 Secon d trime ster 0.55- 2.73 Third trime ster 0.43- 2.91 Not Available [facility] [address] [place], [address], 12/09/2017 06:35:45 12/09/19 18 12/09/2017 CBC white blood cell count 7.9 thous and/u L 3.8-10 .8 normal Not Available [facility] [address] [place], [address], 12/09/2017 04:10:49 05/15/20 18 12/09/2017 CBC red blood cell count 4.71 obinna on/uL 3.80-5 .10 normal Not Available [address] [place], [address], 12/09/2017 04:10:49 12/09/19 18 12/09/2017 CBC hemoglobin 14.2 g/dL 11.7-1 5.5 normal Not Available [address] [place], [address], 12/09/2017 04:10:49 12/09/19 18 12/09/2017 CBC hematocrit 42.6 % 35.0-4 5.0 normal Not Available [address] [place], [address], 12/09/2017 04:10:49 12/09/1912/09/2017 CBC MCV 90.4 fL 80.0-1 00.0 normal Not Available [address] [place], [address], 12/09/2017 04:10:49 12/09/1912/09/2017 CBC MCH 30.1 pg 27.0-3 3.0 normal Not Available [address] [place], [address], 12/09/2017 04:10:49 12/09/1912/09/2017 CBC MCHC 33.3 g/dL 32.0-3 6.0 normal Not Available [address] [place], [address], 12/09/2017 04:10:49 12/09/1912/09/2017 CBC RDW 13.2 % 11.0-1 5.0 normal Not Available [address] [place], [address], 12/09/2017 04:10:49 12/09/1912/09/2017 CBC platelet count 248 thous and/u L 140-40 0 normal Not Available [facility] [address] [facility], [address], 12/09/2017 04:10:49 12/09/19 18 12/09/2017 CBC MPV 11.5 fL 7.5-12 .5 normal Not Available [facility] [address] [facility], [place], [address], 12/09/2017 04:10:49 Result Notes None recorded. Problems No Known Problems Medical Equipment None Reported. Allergies No known drug allergies Medications Name Sig Start Date Stop Date Status Note LastModified by Organization Details LastModified Time amoxicillin 500 mg capsule 12/04 completed Not Available Not Available Not Available azithromycin 250 mg tablet 12/04 completed Not Available Not Available Not Available ibuprofen 800 mg tablet active Not Available Not Available Not Available triazolam 0.125 mg tablet 12/04 completed Not Available Not Available Not Available tramadol 50 mg tablet 12/04 completed Not Available Not Available Not Available methylprednisolo ne 4 mg tablets in a dose pack 12/04 completed Not Available Not Available Not Available brompheniramine- pseudoephedrine- DM 2 mg-30 mg-10 mg/5 mL oral syrup 12/04 completed Not Available Not Available Not Available tobramycin 0.3 %-dexamethasone 0.1 % eye drops,suspension 12/04 completed Not Available Not Available Not Available Solodyn 80 mg tablet,extended release 12/04 completed Not Available Not Available Not Available Lo Loestrin Fe 1 mg-10 mcg (24)/10 mcg (2) tablet active Not Available Not Available Not Available Vestura (28) 3 mg-0.02 mg tablet 12/04 completed Not Available Not Available Not Available Finacea 15 % topical foam 12/04 completed Not Available Not Available Not Available Retin-A Micro Pump 0.06 % topical gel 12/04 completed Not Available Not Available Not Available Vitals Date Recorded Body height Body mass index (BMI) Body weight Oxygen saturation Oxygen saturation in Arterial blood by Pulse oximetry Heart rate Respiratory rate Body temperature Systolic And Diastolic Provider Name and Address Organization Details Last Updated DateTime 8 162.56 cm 33 kg/m2 55169.7 4 g 95 % 95 % 93 /min 18 /min 95.3 [degF] 120/81 mm[Hg] Marley Andersongege [facility] 8 11:34:32 Date Recorded Body height Body weight Body mass index (BMI) Oxygen saturation Oxygen saturation in Arterial blood by Pulse oximetry Heart rate Respiratory rate Body temperature Systolic And Diastolic Provider Name and Address Organization Details Last Updated DateTime 6 162.56 cm 24925.5 5 g 32.6 kg/m2 96 % 96 % 74 /min 16 /min 96.2 [degF] 121/61 mm[Hg] Brooklyn Ledesma [facility] Family & Sports Medicine 6 10:08:35 Social History Question Answer Notes LastModified by [facility] Details LastModified Time Tobacco Smoking Status Never Smoker Not Available [facility] 05/22/2020 03:19:58 Which Illicit Or Recreational Drugs Have You Used? None [id number] Information not available 05/22/2020 Marital Status Single [email or web address] Informatio n not available 06/16/2016 What Was The Date Of Your Most Recent Tobacco Screening? 12/04/2017 [id number] Information not available 05/22/2020 Sex: Unknown Functional Status Question Answer Note LastModified by [facility] Details LastModified Time What is your level of alcohol consumption? Occasional [id number] Information not available 05/22/2020 Mental Status None recorded. Family History Relationship Description Onset Age of this Age Resolved Age Notes LastModified by Organization Details LastModified Time Mother Hypertensive disorder [email or web address] Not available 06/16 11:04:46 Mother Hyperlipidem ia [email or web address] Not available 12/04 11:46:31 Maternal Uncle Malignant tumor of colon [email or web address] Not available 06/16 11:05:16 Medical History Condition Response Coronary Artery Disease N Gout N Other N Anxiety/Depression N Kidney Stones N Blood Diseases N Hyperthyroidism N Breast Cancer N Blood Transfusion N Hernia N Hypothyroidism N Depression N COPD N Lung Disease N Developmental or Behavioral Disorders N Defects or Inherited Disease N Breast Problem N Pacemaker N Difficulty Swallowing N Anesthesia Complications N Anxiety Disorder N Meniere's disease N Muscle, Joint, or Bone Problems N Obesity N Vision or Eye Problems N Orthotics N Arthritis N Infertility N Polyps N Blood Clot N Mental Disorder N Cancer N Varicosities N Stroke N Endometriosis N Bladder or Kidney Problems N High Cholesterol N Liver Disease N Rheumatoid Arthritis N Headaches N Fibromyalgia N Kidney Disease N Allergies/Hayfever N Heart Problems N Ear or Hearing Problems N Hospitalizations N Migraines N Thyroid Problems N GI Problems N ADD/ADHD N Eating Disorder N Skin Problems N Anemia N MRSA exposure N Constipation N Heart Attack (MS) N Ulcers N Mental Illness N Diabetes N Ovarian Cancer N Bedwetting N Bleeding Disorder N Seizures/Epilepsy N Tuberculosis N AIDS/HIV N Congestive Heart Failure (CHF) N Eczema N Abuse/Domestic Violence N Diverticulitis N Asthma N Peripheral Vascular Disease N Reflux/GERD N Hepatitis N Heart Disease N Pulmonary Embolism N Chronic Ear Infections N Pre-Eclampsia N Hypertension N Chicken Pox N Autism Spectrum Disorder (ASD) N Osteoporosis N Thrombophilias N Gynecological HistoryNo gynecological history recorded. Obstetrics History GPAL:G 0 P 0 0 0 0 Past Encounters Encounter ID Performer Location Encounter Start Date Encounter Closed Date Diagnosis/Indication Diagnosis SNOMED-CT Code Diagnosis ICD10 Code Diagnosis Note [id number] Luiz Olivas MD Main Office [address] [place] [address]-295 1 06/16/2016 09:52:56 06/16/2016 10:35:25 Adult health examination 168518477 Z00.00 request labs from fish roe technician Hyperlipid emia screening 476209309 Z13.220 request labs from fish roe technician Screening for malignant neoplasm of cervix 863110160 Z12.4 request report from fish roe technician Edema of l ower extremity 777863198 R60.0 pt elected to defer on vascular ultrasound [id number] Luiz Olivas MD Main Office [address] [place] [address] 1 12/04/2017 11:26:25 12/07/2017 10:48:25 Adult health examination 039927061 Z00.00 baseline labs ordered Hyperlipid emia screening 254260809 Z13.220 lipid panel ordered Screening for malignant neoplasm of cervix 592307623 Z12.4 request report from fish roe technician Health Concerns Section Related Observation LastModified by Organization Detai ls LastModified Time None Recorded Concern Status LastModified by Organization Details LastModified Time None Recorded Advance Directives Directive None Recorded Payers Insurance Date Sequence Insurance Name Policy Number Policy Pop Covered Member ID Pop Member ID Guarantor Name 12/07/2017 1 [employer] [id number] Jessica Palomares [id number] Jessica Palomares OBGyn Episode No OBEpisode recorded.
--- OUTSIDE RECORDS SUMMARY | 2025-02-20 19:18 | XMS_ITS | Encounter Summary ---
Author Organization [facility] Address [address] [id number] Care Team Providers Care Gear Setter Name Role Phone Hoang Kebede MD Primary Care Provider [phone] Shona Cuevas APRN Unavailable [phone] Reason for Referral * Imaging Prior Auth (Routine) - Closed Specialty Diagnoses / Procedures Referred By Reginald monroe Referred To Contact Radiology Diagnoses Disorder of skin and subcutaneous tissue Procedures US Head Neck Soft Tissue Shona Cuevas APRN [address] [place] [address] Phone: tel: fax: [email or web address] - [facility] [address] [place] [address] Phone: tel: Referral ID Status Reason Start Date Expiration Date V isits Requested Visits Authorized [id number] Closed Specialty Services Required 04/10/2023 04/10/2024 1 1 Encounter Details Date Type Department Care Team (Late st Contact Info) Description 04/10/2023 Transcribe Order [facility] [address] [place] [address] Shona Cuevas APRN [address] [place] [address] [email or web address] Disorder of skin and subcutaneous tissue (Primary Dx) Social History Tobacco Use Types Packs/Day Years Used Date Smoking Tobacco: Never Assessed Comments Unknown Sex and Gender Information Value Date Recorded Sex Assigned at Not on file Legal Sex Female 2:03 PM CDT Gender Identity Not on file Sexual Orientation Not on file documented as of this encounter Plan of Treatment Not on file documented as of this encounter Results * US Head Neck Soft Tissue (04/14/2023 12:16 PM CDT) Anatomical Region Laterality Modality Head, Neck, C-spine Ultrasound 04/14/2023 2:05 PM CDT Impressions 04/14/2023 2:05 PM CDT IMPRESSION: 1 x 0.5 cm soft tissue nodule at site of patient concern could represent a lymph node that may be reactive. Neoplastic cause for prominent lymph node is considered to be less likely though not completely excluded. Correlation with clinical/physical exam findings would be necessary. Short interval follow-up sonography or further characterization with soft tissue neck CT could be considered, if indicated. Signed in Ramsoft by SANJIV MARQUEZ MD at 04/14/2023 02:03:51 PM Narrative 04/14/2023 2:05 PM CDT EXAM: Ultrasound head neck soft tissue INDICATION: ICD10: L98.9 - Disorder of skin and subcutaneous tissue nonpainful, palpable, round, non-changing, firm, unsure if mobile, area on left occipital region of head 3-4 weeks. TECHNIQUE: Real-time sonographic imaging of the left occipital soft tissues was performed. was performed. Grayscale and color Doppler techniques were utilized. Static images were submitted for review. COMPARISON: None. FINDINGS: Targeted imaging at the left occipital skull base region reveals a ovoid lesion at site of patient concern, measured by the comparative sociology professor at about 1 cm transverse in large stool diameter and 0.5 cm in depth, initiates about 0.5 cm deep to the skin surface, centered within the subcutaneous fat. Color Doppler images show small amount of internal vascularity. Otherwise no abnormal fluid or fluid collection. No other soft tissue lesions are seen at site of concern. Procedure Note Sanjiv Marquez MD - 04/14/2023 EXAM: Ultrasound head neck soft tissue INDICATION: ICD10: L98.9 - Disorder of skin and subcutaneous tissue nonpainful,palpable, round, non-changing, firm, unsure if mobile, area on leftoccipital region of head 3-4 weeks. TECHNIQUE: Real-time sonographic imaging of the left occipital softtissues was performed. was performed. Grayscale and color Dopplertechniques were utilized. Static images were submitted for review. COMPARISON: None. FINDINGS: Targeted imaging at the left occipital skull base region reveals a ovoidlesion at site of patient concern, measured by the comparative sociology professor at about 1cm transverse in large stool diameter and 0.5 cm in depth, initiates about0.5 cm deep to the skin surface, centered within the subcutaneous fat. Color Doppler images show smallamount of internal vascularity. Otherwise no abnormal fluid or fluid collection. No other soft tissuelesions are seen at site of concern. IMPRESSION: IMPRESSION: 1 x 0.5 cm soft tissue nodule at site of patient concern could represent alymph node that may be reactive. Neoplastic cause for prominent lymphnode is considered to be less likely though not completely excluded.Correlation with clinical/physical exam findings would be necessary. Short interval follow-up sonography orfurther characterization with soft tissue neck CT could be considered, ifindicated. Signed in [employer] by SANJIV MARQUEZ MD at 04/14/2023 02:03:51 PM Shona Cuevas APRN [facility] [place] ORDERABLES Final Resu lt documented in this encounter Visit Diagnoses Diagnosis Disorder of skin and subcutaneous tissue- Primary Unspecified disorder of skin and subcutaneous tissue Disorder of skin and subcutaneous tissue Unspecified disorder of skin and subcutaneous tissue documented in this encounter Care Teams Gear Setter Relationship Specialty Start Date End Date Hoang Kebede MD [address] [place] [address] Luis PCP - General 02/03/24 Shona Cuevas APRN [address] [place] [address] 02/03/24 documented as of this encounter
--- OUTSIDE RECORDS SUMMARY | 2025-02-20 19:18 | XMS_ITS | Encounter Summary ---
Author Organization [facility] Address [address] [address] Care Team Providers Care Photographer Model Name Role Phone Hoang Kebede MD Primary Care Provider + [phone] Shona Cuevas APRN Unavailable [phone] Encounter Details Date Type Department Care Team (Late st Contact Info) Description 02/25/2024 [place] Convers[facility] n Encounter HISTORICAL CONVERSION Provider, MD Leah [address] [place] [address] Social History Tobacco Use Types Packs/Day Years Used Date Smoking Tobacco: Never Assessed Comments Unknown Sex and Gender Information Value Date Recorded Sex Assigned at Not on file Legal Sex Female 2:03 PM CDT Gender Identity Not on file Sexual Orientation Not on file documented as of this encounter Plan of Treatment Not on file documented as of this encounter Visit Diagnoses Not on filedocumented in this encounter Care Teams Photographer Model Relationship Specialty Start Date End Date Hoang Kebede MD [address] [place] [address] [email or web address] PCP - General 02/03/24 Shona Cuevas APRN [address] [place] [address] [email or web address] 02/03/24 documented as of this encounter
--- OUTSIDE RECORDS SUMMARY | 2025-02-20 19:18 | XMS_ITS | Encounter Summary ---
Author Organization [facility] Address [address] [address] Care Team Providers Care Prime Broker Name Role Phone Hoang Kebede MD Primary Care Provider [phone] Shona Cuevas APRN Unavailable [phone] Encounter Details Date Type Department Care Team (Late st Contact Info) Description 02/12/2023 Orders Only [facility] [place] [address] Jessica Bryson Other fatigue (Primary Dx) Social History Tobacco Use Types [...] documented as of this encounter Results * Ferritin (02/18/2023 10:39 AM CDT) Ferritin 141 8 - 252 ng/mL 02/18/2023 11:34 AM CDT [facility] Blood Venipuncture / Unknown 02/18/2023 10:39 AM CDT 02/18/2023 10:39 AM CDT us Shona Cuevas APRN LAB BLOOD ORDERABLES Final R esult [facility] [address] [place] [address] * (ABNORMAL) Comprehensive Metabolic Panel (02/18/2023 10:39 AM CDT) Sodium 140 137 - 150 mmol/L 02/18/2023 11:34 AM [facility] Potassium 4.3 3.5 - 5.3 mmol/L 02/18/2023 11:34 AM [facility] Chloride 104 98 - 107 mmol/L 02/18/2023 11:34 AM [facility] CO2 25 23 - 33 mmol/L 02/18/2023 11:34 AM [facility] Anion Gap 11 02/18/2023 11:34 AM [facility] Glucose 94 70 - 106 mg/dL 02/18/2023 11:34 AM [facility] Total Protein 7.5 6.3 - 8.0 g/dL 02/18/2023 11:34 AM [facility] Albumin 3.8 3.4 - 5.0 g/dL 02/18/2023 11:34 AM [facility] Calcium 9.2 8.5 - 10.1 mg/dL 02/18/2023 11:34 AM [facility] BUN, Bld 12 7 - 23 mg/dL 02/18/2023 11:34 AM [facility] Creatinine 0.91 0.55 - 1.02 mg/dL 02/18/2023 11:34 AM [facility] eGFR >59 >59 mL/min 02/18/2023 11:34 AM [facility] Total Bilirubin 0.8 <=1.0 mg/dL 02/18/2023 11:34 AM [facility] Alkaline Phosphatase 108 46 - 116 U/L 02/18/2023 11:34 AM [facility] ALT 85(H) 12 - 78 U/L 02/18/2023 11:34 AM [facility] AST 59(H) 15 - 37 U/L 02/18/2023 11:34 AM [facility] Blood Venipuncture / Unknown 02/18/2023 10:39 AM CDT 02/18/2023 10:[address] [facility] [employer]OTE [employer] DEVELOPER LAB BLOOD ORDERABLES Final R esult Performing Organization Address City/[facility]/[place] [address] * Vitamin B12 (02/18/2023 10:39 AM CDT) Vitamin B-12 370 193 - 986 pg/mL 02/18/2023 11:34 AM CDT [facility] Blood Venipuncture / Unknown 02/18/2023 10:39 AM CDT 02/18/2023 10:39 AM CDT Narrative [facility] - 02/18/2023 11:34 AM CDT Vitamin B-12 Reference Range: Normal = 211-911 pg/mL Deficient = 32-246 pg/mL [facility] [employer]OTE [employer] DEVELOPER LAB BLOOD ORDERABLES Final R esult Performing Organization Address City/[facility]/[place] [address] * TSH (02/18/2023 10:39 AM CDT) Pathologist [facility] TSH 2.791 0.358 - 3.740 uIU/mL 02/18/2023 11:34 AM CDT [facility] Blood Venipuncture / Unknown 02/18/2023 10:39 AM CDT 02/18/2023 10:39 AM CDT [facility] [employer]OTE [employer] DEVELOPER LAB BLOOD ORDERABLES Final R esult Performing Organization Address City/[facility]/[place] [address] documented in this encounter Visit Diagnoses Diagnosis Other fatigue- Primary documented in this encounter Care Teams Prime Broker Relationship Specialty Start Date End Date Hoang Kebede MD [address] [place] [address] [email or web address] PCP - General 02/03/24 Shona Cuevas APRN [address] [place] [address] [email or web address] 02/03/24 documented as of this encounter
--- OUTSIDE RECORDS SUMMARY | 2025-02-20 19:18 | XMS_ITS | Referral Summary ---
Author Organization [facility] Address [address] [address] Care Team Providers Care Hydrant Setter Name Role Phone Hoang Kebede MD Primary Care Provider [phone] Shona Cuevas APRN Unavailable [phone] Social History Tobacco Use Types Packs/Day Years Used Date Smoking Tobacco: Never Assessed Comments Unknown Sex and Gender Information Value Date Recorded Sex Assigned at Not on file Legal Sex Female 2:03 PM CDT Gender Identity Not on file Sexual Orientation Not on file Plan of Treatment Not on file Insurance [facility] Care Teams Hydrant Setter Relationship Specialty Start Date End Date Hoang Kebede MD [address] [place] [address] [email or web address] PCP - General 02/03/24 Shona Cuevas APRN [address] [place] [address] [email or web address] 02/03/24
[2025-02-20 19:29] VITALS: BP 114/76; PULSE 87; RESP 20; O2SAT 98
--- NOTE | 2025-02-20 19:29 | PC.NURSE ---
Assumed care of patient after receiving bedside report from BRIELLE Arias @ 1927
[2025-02-20] MEDS: cefTRIAXone 2 GM in SODIUM CHLORIDE 0.9% IV 100 ML 200 ML IVPB (20:02)
[2025-02-20 21:10] VITALS: BP 117/65; PULSE 99; RESP 18; O2SAT 99
== END 2025-02-20 21:10 | disposition home or self-care (01) ==
PROVIDERS: Family Medicine; Registered Nurse; Emergency Provider Emergency Medicine
DX: N39.0 Urinary tract infection, site not specified (principal); K81.9 Cholecystitis, unspecified
CPT/HCPCS: 36415; 71275; 74177; 80053; 81001; 81025; 82948; 83605; 83735; 84484; 85025; 85380; 85610; 85730; 87086; 93005; 96365; 99284; A9270; J0696; Q9967